=== PATIENT | male | born 1945 | race Caucasian/White ===

== ENCOUNTER 2018-04-14 16:13 | Emergency (ER) | payer OTHER, MEDICAID ==
[~2018-04-14] VITALS: Ht 182.9 cm; Wt 65.8 kg
[~2018-04-14 16:13] MED LIST: ACET-7568 PO; ASPI81CT89 PO; ATEN25TA7 PO; CALC600T56 PO; ERGO80004 PO; LACO100T PO; LACT10SO1 PO; LISI5TAB18 PO; MULT-1184 PO; PAX10 PO; WARF-18 PO
[2018-04-14 16:28] VITALS: BP 124/78
--- NOTE | 2018-04-14 16:30 | NUR ---
TO LOBBY A/W BED. AMBULATORY, RUTH SIMS NOTED
--- NOTE | 2018-04-14 16:46 | NUR ---
72/M BIB DIRECTOR GEOPHYSICAL LABORATORY FROM [facility] C/O HONG HAND PAIN SINE 3 DAYS. DENIES N/V/D; HX: SEVERE INTELICTUAL DISABILITY, SEIZURE DISORDER,, HIGH CHOLESTEROL, HTN, OA, HEARING LOSS. PT DENIES ANY FEVER, CP, SOB, OR COUGH AT THIS TIME; PATIENT STATES PAIN OF 6/10 AT THIS TIME. PATIENT POSITIONED FOR COMFORT; HOB ELEVATED; BEDRAILS UP X2; BED DOWN. ER MD MADE AWARE OF PT STATUS.
[2018-04-14] MEDS ORDERED: KETOROLAC 60 MG/2 ML VIAL IM ONE (17:30)
[2018-04-14] MEDS ORDERED: traMADol 50 MG TAB PO ONE (17:30)
[2018-04-14] MEDS ORDERED: DEXAMETHASONE 10 MG/ML VIAL IM ONE (17:30)
[2018-04-14 18:14] VITALS: BP 119/82
--- NOTE | 2018-04-14 18:14 | NUR ---
Patient discharged with v/s stable. Written and verbal after care instructions given and explained. Patient alert, oriented and verbalized understanding of instructions. Ambulatory with steady gait. All questions addressed prior to discharge. ID band removed. Patient advised to follow up with PMD. Rx of ATARAX 25MG AND TRIAMCINOLONE ACETONIDE 0.1% given. Patient educated on indication of medication including possible reaction and side effects. Opportunity to ask questions provided and answered.
== END 2018-04-14 18:14 | disposition home or self-care (01) ==
LOC: MED 16:13
DX: L30.9 Dermatitis, unspecified (principal); I10 Essential (primary) hypertension; F72 Severe intellectual disabilities; E78.00 Pure hypercholesterolemia, unspecified; M19.90 Unspecified osteoarthritis, unspecified site; Z79.899 Other long term (current) drug therapy; Z79.1 Long term (current) use of non-steroidal anti-inflammatories (NSAID); Z79.82 Long term (current) use of aspirin
CPT/HCPCS: 96372; 99283; J1100; J1885

== ENCOUNTER 2019-03-06 17:19 | Emergency (ER) | payer OTHER, MEDICAID ==
[~2019-03-06] VITALS: Ht 170.2 cm; Wt 79.8 kg
[~2019-03-06 17:19] MED LIST changes: +ASPI-1718 PO; -ASPI81CT89 PO; -ERGO80004 PO; +ERGO80009 PO
[2019-03-06 17:23] VITALS: BP 132/75
--- NOTE | 2019-03-06 17:30 | NUR ---
73 YO MALE BIB CAREGIVER FOR C/O L KNEE PAIN. PT AND CAREGIVER DENY TRAUMA, PT ABLE TO AMB WITH STEADY GAIT @ BEDSIDE. ACTIVE ROM. PT STATES GROIN PAIN ASSOCIATED WITH KNEE PAIN. PALPABLE PULSES, SKIN WARM DRY INTACT. GURNEY LOCKED IN LOWEST POSITION. WILL UPDATE ERMD HX: OSTEOARTHRITIS, OSTEOPOROSIS, HTN, EPILEPSY, DEVELOPMENTAL DISABILITY RX: SEE MED REC
--- NOTE | 2019-03-06 18:25 | NUR ---
Patient discharged with v/s stable. Written and verbal after care instructions given and explained. Patient verbalized understanding. Ambulatory with caregiver. All questions addressed prior to discharge. Advised to follow up with PMD.
[2019-03-06 18:26] VITALS: BP 125/62
== END 2019-03-06 18:25 | disposition home or self-care (01) ==
LOC: MED 17:19
DX: M25.562 Pain in left knee (principal); I10 Essential (primary) hypertension; Z85.46 Personal history of malignant neoplasm of prostate; Z79.82 Long term (current) use of aspirin; Z79.899 Other long term (current) drug therapy
CPT/HCPCS: 99283

== ENCOUNTER 2019-03-12 08:53 | Emergency (ER) | payer OTHER, MEDICAID ==
[~2019-03-12] VITALS: Ht 182.9 cm; Wt 76.2 kg
[2019-03-12 09:06] VITALS: BP 121/67
--- NOTE | 2019-03-12 09:17 | NUR ---
Patient transferred to bed 4 via wheelchair by tech. RN evaluating patient at bedside.
--- NOTE | 2019-03-12 09:18 | NUR ---
pt bib caregiver c/o left knee pain x 2 weeks. left knee rates pain 5/10 and radiates to left groin. caregiver is unaware if he had a recent fall or injury prior. vss. no obvious deformity noted. cms intact. no redness or bursing noted on extrem. steady gait with limbing on left leg. PATIENT POSITIONED FOR COMFORT; HOB ELEVATED; BEDRAILS UP X1; BED DOWN. nka.
--- NOTE | 2019-03-12 09:18 | NUR ---
leg are equal in length, no shortness limb noted.
--- NOTE | 2019-03-12 09:23 | NUR ---
Dr. Frank is evaluating the patient at bedside.
--- NOTE | 2019-03-12 09:35 | NUR ---
pt transfer via wheelchair to get xr.
--- NOTE | 2019-03-12 09:36 | NUR ---
Patient taken to XRAY via wheelchair by tech.
--- NOTE | 2019-03-12 10:06 | NUR ---
pt returned back from xr via wheelchair.
[2019-03-12 10:51] VITALS: BP 121/67
--- NOTE | 2019-03-12 10:51 | NUR ---
Patient discharged with v/s stable. Written and verbal after care instructions given and explained. Patient verbalized understanding. Ambulatory with steady gait. All questions addressed prior to discharge. Advised to follow up with PMD.
== END 2019-03-12 10:51 ==
LOC: MED 08:53
DX: M25.562 Pain in left knee (principal); I10 Essential (primary) hypertension; Z86.69 Personal history of other diseases of the nervous system and sense organs; Z79.01 Long term (current) use of anticoagulants; Z79.899 Other long term (current) drug therapy; Z79.82 Long term (current) use of aspirin
CPT/HCPCS: 72170; 73502; 73562; 99283